=== PATIENT | male | born 1945 | race Caucasian/White ===

== ENCOUNTER 2021-03-10 12:34 | Emergency (ER) | payer MEDICARE, BC ==
[~2021-03-10] VITALS: Ht 185.4 cm; Wt 72.0 kg
[2021-03-10 12:36] VITALS: BP 200/73
== END 2021-03-10 14:15 | disposition home or self-care (01) ==
LOC: ER 12:34
DX: S96.911A Strain of unspecified muscle and tendon at ankle and foot level, right foot, initial encounter (principal); S90.31XA Contusion of right foot, initial encounter; M79.672 Pain in left foot; W18.40XA Slipping, tripping and stumbling without falling, unspecified, initial encounter; Y93.89 Activity, other specified; Y92.89 Other specified places as the place of occurrence of the external cause; Y99.8 Other external cause status
CPT/HCPCS: 73630; 99283

== ENCOUNTER 2021-12-16 08:43 | Emergency (ER) | payer MEDICARE ==
[~2021-12-16] VITALS: Ht 188 cm; Wt 72.7 kg
[~2021-12-16 08:43] MED LIST: APIX2.5T PO; ASPI-611 PO; BUDE10.7; CHOL4PAC2 PO; HYOS0.3737 PO; LEVO100T9 PO; MAGN64TA10 PO; MELA1TAB28 PO; METO50TA16 PO; MULT-1085 PO; PIOG30TA71 PO; SPIR25TA5 PO
[2021-12-16 08:52] VITALS: BP 162/74
[2021-12-16] MEDS ORDERED: meclizine 12.5mg tablet PO ONE (09:25)
[2021-12-16] MEDS ORDERED: ondansetron 4mg rapidly disintigrating tab PO ONE (09:25)
[2021-12-16] MEDS ORDERED: ONDA-103 PO ×2 (09:35→09:36)
[2021-12-16] MEDS ORDERED: MECL-226 PO ×2 (09:35→09:36)
== END 2021-12-16 09:55 | disposition home or self-care (01) ==
LOC: ER 08:43
DX: H81.10 Benign paroxysmal vertigo, unspecified ear (principal); H53.2 Diplopia; I48.91 Unspecified atrial fibrillation; I50.9 Heart failure, unspecified; E11.9 Type 2 diabetes mellitus without complications; E03.9 Hypothyroidism, unspecified; Z79.82 Long term (current) use of aspirin; Z79.899 Other long term (current) drug therapy
CPT/HCPCS: 93005; 99284; J8597

== ENCOUNTER 2022-01-24 13:48 | Day surgery (SDC) | payer MEDICARE ==
[~2022-01-24] VITALS: Ht 185.4 cm; Wt 69.5 kg
[2022-01-24] VITALS (12 sets, daily range): BP systolic 136–170; BP diastolic 56–98
[~2022-01-24 13:48] MED LIST changes: +MECL-226 PO; +ONDA-103 PO
[2022-01-24] MEDS ORDERED: normal saline 1000ml 1,000 ML IV SCH (14:10)
[2022-01-24] MEDS ORDERED: MIDAZolam 1mg/ml 10ml vial IV ONE (14:10)
[2022-01-24] MEDS ORDERED: fentaNYL/PF 50MCG/1 ML 2ML syringe IV ONE (14:10)
[2022-01-24] MEDS ORDERED: METO-411 PO (14:16)
[2022-01-24] MEDS ORDERED: AMIO200T61 PO (14:16)
[2022-01-24] MEDS ORDERED: DAPA10TA PO (14:16)
[2022-01-24] MEDS ORDERED: FURO40TA4 PO (14:16)
[2022-01-24] MEDS ORDERED: LEVO100T PO (14:18)
[2022-01-24] MEDS ORDERED: SPIR25TA PO (14:18)
[2022-01-24] MEDS ORDERED: APIX2.5T PO (14:18)
--- NOTE | 2022-01-24 15:50 | NUR ---
Pt sitting up in bed, eating lunch tray. Denies sob, denies cp. Will continue to monitor.
== END 2022-01-24 16:27 | disposition home or self-care (01) ==
LOC: SSTAY O 13:48
PROVIDERS: ATTEND Internal Medicine Interventional Cardiology
DX: I48.91 Unspecified atrial fibrillation (principal); E11.22 Type 2 diabetes mellitus with diabetic chronic kidney disease; I13.0 Hypertensive heart and chronic kidney disease with heart failure and stage 1 through stage 4 chronic kidney disease, or unspecified chronic kidney disease; N18.9 Chronic kidney disease, unspecified; I50.22 Chronic systolic (congestive) heart failure; E78.5 Hyperlipidemia, unspecified; E11.59 Type 2 diabetes mellitus with other circulatory complications; I42.0 Dilated cardiomyopathy; Z79.899 Other long term (current) drug therapy; Z79.01 Long term (current) use of anticoagulants
CPT/HCPCS: 82948; 92960; 93005; 94799; J7030

== ENCOUNTER 2023-01-18 20:21 | Emergency (ER) | payer MEDICARE ==
[~2023-01-18] VITALS: Ht 182.9 cm; Wt 75.0 kg
[~2023-01-18 20:21] MED LIST changes: +AMIO200T61 PO; -ASPI-611 PO; -BUDE10.7; -CHOL4PAC2 PO; +DAPA10TA PO; +FURO40TA4 PO; -HYOS0.3737 PO; +LEVO100T PO; -LEVO100T9 PO; +LidoCAINE 2% Topical Jelly 11mL syringe ONE; -MAGN64TA10 PO; -MECL-226 PO; -MELA1TAB28 PO; +METO-411 PO; -METO50TA16 PO; -MULT-1085 PO; -ONDA-103 PO; -PIOG30TA71 PO; +SPIR25TA PO; -SPIR25TA5 PO; +amiodarone 50MG/ML inj IV ONE; +atropine 0.1mg/ml 10ml syringe ONE; +calcium chloride 100 MG/1 ML inj IV ONE; +sodium bicarbonate (8.4%) 1 mEq/ml syringe ONE
[2023-01-18 20:45] LABS: BASOPHILS % (AUTO) 0.3 % (0-1); EOSINOPHILS # (AUTO) 0.1 X10'3 (0-0.9); EOSINOPHILS % (AUTO) 0.5 % (0-6); HEMOGLOBIN 12.8 g/dl (14.0-17.9); LYMPHOCYTES # (AUTO) 0.8 X10'3 (1.1-4.8); LYMPHOCYTES % (AUTO) 6.9 % (21-51); MEAN CORPUSCULAR HEMOGLOBIN 29.8 PG (27.0-31.0); MEAN CORPUSCULAR HGB CONC 32.7 g/dL (33.0-36.5); MEAN CORPUSCULAR VOLUME 91.1 FL (78-98); MEAN PLATELET VOLUME 8.6 FL (7.4-10.4); MONOCYTES # (AUTO) 1.1 X10'3 (0-0.9); MONOCYTES % (AUTO) 9.3 % (2-12); NEUTROPHILS # (AUTO) 9.7 X10'3 (1.8-7.7); PLATELET COUNT 306 X10'3 (140-440); RED BLOOD COUNT 4.29 X10'6 (4.70-6.10); RED CELL DISTRIBUTION WIDTH 16.4 % (11.5-14.5); WHITE BLOOD COUNT 11.7 X10'3 (4.5-11.0)
[2023-01-18 21:01] LABS: ALANINE AMINOTRANSFERASE 11 U/L (12-78); ALBUMIN 3.4 G/DL (3.4-5.0); ALBUMIN/GLOBULIN RATIO 0.8 (1.1-1.5); ALKALINE PHOSPHATASE 98 IU/L (46-116); ANION GAP 13 (8-16); ASPARTATE AMINO TRANSFERASE 11 U/L (10-37); BILIRUBIN,TOTAL 0.3 MG/DL (0.1-1.0); BLOOD UREA NITROGEN 47 MG/DL (7-18); BUN/CREATININE RATIO 17.3 (5.4-32.0); CALCIUM 9.5 MG/DL (8.5-10.1); CHLORIDE 102 MMOL/L (99-107); CREATININE 2.72 MG/DL (0.60-1.10); GLUCOSE 265 MG/DL (70-104); POTASSIUM 4.7 MMOL/L (3.5-5.1); SODIUM 135 MMOL/L (135-145); TOTAL PROTEIN 7.8 G/DL (6.4-8.2); eGFR 23 ML/MIN
[2023-01-18 21:08] LABS: MAGNESIUM 1.8 MG/DL (1.5-2.4)
--- NOTE | 2023-01-18 21:23 | NUR ---
Refer to Code blue sheets.
== END 2023-01-19 03:16 ==
LOC: ER 20:21
DX: I46.9 Cardiac arrest, cause unspecified (principal); I50.9 Heart failure, unspecified; E11.9 Type 2 diabetes mellitus without complications; E03.9 Hypothyroidism, unspecified
CPT/HCPCS: 31500; 36415; 80053; 82948; 83735; 83880; 84484; 85025; 92950; 93005; 99291; J0282; J0461; J3490; 94760